=== PATIENT | female | born 1985 | race Caucasian/White ===

== ENCOUNTER 2021-02-04 00:47 | Emergency (ER) | payer OTHER ==
[2021-02-04] MEDS ORDERED: Dexamethasone 10 MG/ML VIAL ONE (01:30)
[2021-02-04] MEDS ORDERED: Meclizine HCl 25 MG TAB ONE (01:30)
[2021-02-04] MEDS ORDERED: Lorazepam 2 MG/ML VIAL ONE (01:31)
[2021-02-04 01:37] LABS: BHCG - Serum Negative (NEGATIVE); Pregs Control Background? CLEAR/WHITE (CLR/WHITE); Pregs Control Bar Appear? YES (CONTROL BAR)
[2021-02-04 01:44] LABS: Hemoglobin 13.6 g/dL (12.0-15.5); Mean Corpuscular HGB CONC 34.1 g/dL (32.0-36.0); Mean Corpuscular Hemoglobin 30.5 pg (27.0-33.0); Mean Corpuscular Volume 89.5 fl (81.6-98.3); Mean Platelet Volume 9.3 fl (7.4-10.4); Platelet Count 339 10x3/uL (150-450); RBC Distribution Width 12.5 % (11.5-14.5); Red Blood Cell (RBC) Count 4.46 10x6/uL (3.90-5.03); White Blood Cell (WBC) Count 12.3 10x3/uL (3.5-10.5)
[2021-02-04 01:46] LABS: ALT (SGPT) 44 U/L (8-55); AST (SGOT) 26 U/L (5-34); Albumin 4.5 g/dL (3.5-5.0); Alkaline Phosphatase 101 U/L (40-110); Anion Gap 17 mmol/L (10-20); BUN (Urea Nitrogen) 15 mg/dL (7.0-18.7); Bilirubin, Total 0.4 mg/dL (0.2-1.2); CK (CPK) 83 U/L (29-168); Calc. Creatinine Clearance 0 mL/min (70-130); Calcium 9.6 mg/dL (7.8-10.44); Carbon Dioxide 22 mmol/L (22-29); Chloride 103 mmol/L (98-107); Globulin 3.6 g/dL (2.4-3.5); Glucose 111 mg/dL (70-105); Potassium 3.8 mmol/L (3.5-5.1); Protein, Total 8.1 g/dL (6.0-8.3); Sodium 138 mmol/L (136-145)
[2021-02-04 01:56] LABS: MDiff Complete? YES
[2021-02-04 01:59] LABS: Eosinophils 1 % (0-10); Lymphocytes 46 % (21-51); Monocytes 6 % (0-10); Neutrophil 47 % (42-75)
[2021-02-04 02:00] LABS: Platelet Morphology Comment Appears Adequate; RBC Morphology Normal
== END 2021-02-04 03:54 | disposition home or self-care (01) ==
LOC: CSHERS 00:47
DX: R42 Dizziness and giddiness (principal); K21.9 Gastro-esophageal reflux disease without esophagitis; I10 Essential (primary) hypertension; G43.909 Migraine, unspecified, not intractable, without status migrainosus
CPT/HCPCS: 70450; 80053; 82550; 84703; 85025; 93005; 96374; 96375; J1100; J2060

== ENCOUNTER 2021-10-10 19:41 | Emergency (ER) | payer OTHER | END 2021-10-10 21:18 | disposition home or self-care (01) | LOC: CSHERS 19:41 | DX: M76.62 Achilles tendinitis, left leg (principal); M72.2 Plantar fascial fibromatosis; K21.9 Gastro-esophageal reflux disease without esophagitis; I10 Essential (primary) hypertension; Z79.899 Other long term (current) drug therapy ==

== ENCOUNTER 2022-10-19 18:31 | Emergency (ER) | payer OTHER, SELFPAY ==
[2022-10-19] MEDS ORDERED: Cephalexin 250 MG CAP ONE (19:29)
== END 2022-10-19 20:07 | disposition home or self-care (01) ==
LOC: CSHERS 18:31
DX: N60.02 Solitary cyst of left breast (principal); I10 Essential (primary) hypertension; K21.9 Gastro-esophageal reflux disease without esophagitis
CPT/HCPCS: 99282